=== PATIENT | male | born 1950 | race Caucasian/White ===

== ENCOUNTER 2022-10-27 04:24 | Outpatient (CLI) | payer MEDICARE, SELFPAY ==
[2022-10-27 13:21] LABS: Abs Immature Grans 0.02 10^3/uL (0.0-0.06); Absolute Basophil Count 0.04 10^3/uL (0.0-0.2); Absolute Eosinophil Count 0.04 10^3/uL (0.0-0.7); Absolute Lymphocyte Count 0.96 10^3/uL (1.2-3.4); Absolute Neutrophil Count 4.49 10^3/uL (1.2-6.7); Basophils % 0.7; Eosinophils % 0.7; HCT 34.9 % (40.0-50.0); HGB 12.1 g/dL (13.5-17.5); Immature Grans % 0.3; Lymphocytes % 15.6; MCH 32.4 pg (27.0-33.0); MCHC 34.7 % (32.0-36.0); MCV 93 fL (80-95); Monocytes % 9.8; Neutrophils % 72.9; Platelet Count 367 10^3/uL (130-400); RBC 3.74 10^6/uL (4.36-5.78); RDW 11.9 % (11.8-14.1); WBC 6.15 10^3/uL (4.4-10.8)
[2022-10-27 13:35] LABS: ALT 17 U/L (16-63); AST 15 U/L (15-37); Albumin 4.1 g/dL (3.4-5.0); Alkaline Phosphatase 51 U/L (46-116); Anion Gap 7.7 mmol/L (3-11); BUN 10 mg/dL (7-18); Bilirubin, Total 0.5 mg/dL (0.2-1.0); CO2 30.3 mmol/L (21.0-32.0); CREATININE 0.6 mg/dL (0.70-1.30); Calcium 9.2 mg/dL (8.5-10.1); Chloride 88 mmol/L (98-107); Estimated GFR 102.56 (mL/min/1.73m2); Glucose 139 mg/dL (74-106); Magnesium 1.6 mg/dL (1.8-2.4); Potassium 4.1 mmol/L (3.5-5.1); Sodium 126 mmol/L (136-145); Total Protein 7.1 g/dL (6.4-8.2)
== END 2022-10-27 04:25 | disposition home or self-care (01) ==
LOC: LBO 04:26
PROVIDERS: PCP Family Medicine; Visit Provider Internal Medicine Medical Oncology
DX: R91.1 Solitary pulmonary nodule (principal)
CPT/HCPCS: 36415; 80053; 83735; 85025

== ENCOUNTER 2022-12-01 03:09 | Outpatient (CLI) | payer MEDICARE, SELFPAY ==
[2022-12-01 12:40] LABS: Abs Immature Grans 0.03 10^3/uL (0.0-0.06); Absolute Basophil Count 0.04 10^3/uL (0.0-0.2); Absolute Eosinophil Count 0.03 10^3/uL (0.0-0.7); Absolute Lymphocyte Count 0.44 10^3/uL (1.2-3.4); Absolute Monocyte Count 1.27 10^3/uL (0.1-0.8); Absolute Neutrophil Count 7.62 10^3/uL (1.2-6.7); Basophils % 0.4; Eosinophils % 0.3; HGB 12.4 g/dL (13.5-17.5); Immature Grans % 0.3; Lymphocytes % 4.7; MCH 31.1 pg (27.0-33.0); MCHC 34.4 % (32.0-36.0); MCV 90 fL (80-95); MPV 8.1 fL (8.0-11.0); Monocytes % 13.5; Neutrophils % 80.8; Platelet Count 407 10^3/uL (130-400); RBC 3.99 10^6/uL (4.36-5.78); RDW-SD 39.7 fL; WBC 9.43 10^3/uL (4.4-10.8)
[2022-12-01 12:55] LABS: ALT 15 U/L (16-63); AST 15 U/L (15-37); Albumin 3.7 g/dL (3.4-5.0); Alkaline Phosphatase 69 U/L (46-116); Anion Gap 6.8 mmol/L (3-11); BUN 10 mg/dL (7-18); Bilirubin, Total 0.6 mg/dL (0.2-1.0); CO2 29.2 mmol/L (21.0-32.0); CREATININE 0.6 mg/dL (0.70-1.30); Calcium 9.2 mg/dL (8.5-10.1); Chloride 87 mmol/L (98-107); Estimated GFR 102.56 (mL/min/1.73m2); Glucose 111 mg/dL (74-106); Magnesium 1.6 mg/dL (1.8-2.4); Potassium 3.9 mmol/L (3.5-5.1)
[2022-12-01 12:58] LABS: Sodium 123 mmol/L (136-145)
== END 2022-12-01 03:10 | disposition home or self-care (01) ==
LOC: LBO 03:12
PROVIDERS: PCP Family Medicine; Visit Provider Internal Medicine Medical Oncology
DX: R91.1 Solitary pulmonary nodule (principal)
CPT/HCPCS: 36415; 80053; 83735; 85025